=== PATIENT | female | born 1980 | race Caucasian/White ===

== ENCOUNTER 2016-08-03 17:45 | Emergency (ER) | payer SELFPAY ==
[~2016-08-03] VITALS: Ht 172.7 cm; Wt 65.8 kg
[2016-08-03 18:08] VITALS: BP 126/71
== END 2016-08-03 18:25 | disposition home or self-care (01) ==
LOC: ER 17:50
DX: J06.9 Acute upper respiratory infection, unspecified (principal); R05 Cough; F17.200 Nicotine dependence, unspecified, uncomplicated
CPT/HCPCS: 99281; A4606; Z7610; Z7502

== ENCOUNTER 2017-05-02 15:57 | Emergency (ER) | payer MEDICAID ==
[~2017-05-02] VITALS: Ht 167.6 cm; Wt 59.0 kg
[2017-05-02 16:12] VITALS: BP 124/74
== END 2017-05-02 16:50 | disposition home or self-care (01) ==
LOC: ER 15:59
DX: L50.9 Urticaria, unspecified (principal); F17.200 Nicotine dependence, unspecified, uncomplicated; Z98.82 Breast implant status
CPT/HCPCS: 99281; A4606; Z7610; Z7502

== ENCOUNTER 2018-04-07 21:16 | Emergency (ER) | payer MEDICAID ==
[~2018-04-07] VITALS: Ht 170.2 cm; Wt 59.4 kg
[2018-04-07 21:30] VITALS: BP 102/71
== END 2018-04-07 22:37 | disposition home or self-care (01) ==
LOC: ER 21:18
DX: J06.9 Acute upper respiratory infection, unspecified (principal); F17.200 Nicotine dependence, unspecified, uncomplicated; Z41.1 Encounter for cosmetic surgery; Z98.890 Other specified postprocedural states
CPT/HCPCS: 71045; 99283; A4606; Z7610

== ENCOUNTER 2018-07-16 00:47 | Emergency (ER) | END 2018-07-16 02:48 | disposition home or self-care (01) | DX: S02.2XXA Fracture of nasal bones, initial encounter for closed fracture (principal); S05.12XA Contusion of eyeball and orbital tissues, left eye, initial encounter; F17.200 Nicotine dependence, unspecified, uncomplicated; R42 Dizziness and giddiness; Z98.890 Other specified postprocedural states; Z98.82 Breast implant status; Y04.8XXA Assault by other bodily force, initial encounter; Y93.89 Activity, other specified; Y92.89 Other specified places as the place of occurrence of the external cause; Y99.8 Other external cause status ==

== ENCOUNTER 2020-02-29 22:30 | Emergency (ER) | payer MEDICAID ==
[~2020-02-29] VITALS: Ht 170.2 cm; Wt 59.0 kg
[2020-02-29 23:01] VITALS: BP 106/72
--- NOTE | 2020-02-29 23:18 | NUR ---
Discharged with Prescription antibiotics (augmentin).
--- NOTE | 2020-02-29 23:18 | NUR ---
Patient discharged to home in stable condition. Written and verbal after care instructions given. Patient verbalizes understanding of instruction.
== END 2020-02-29 23:20 | disposition home or self-care (01) ==
LOC: ER 22:30
DX: K04.7 Periapical abscess without sinus (principal); F17.210 Nicotine dependence, cigarettes, uncomplicated; Z98.890 Other specified postprocedural states; Z41.1 Encounter for cosmetic surgery

== ENCOUNTER 2020-03-25 06:49 | Emergency (ER) | payer MEDICAID ==
[~2020-03-25] VITALS: Ht 170.2 cm; Wt 61.2 kg
--- NOTE | 2020-03-25 07:01 | NUR ---
URINE SAMPLE COLLECTED AND SENT TO LAB.
--- NOTE | 2020-03-25 07:03 | NUR ---
RM DUARTE AT BEDSIDE TO [facility].
--- NOTE | 2020-03-25 07:03 | NUR ---
PT AAOX4, AMBULATORY WITH STEADY GAIT. BIBSELF C/O DIARRHEA X3 DAYS + STATE SHE WANTS A PRES FOR HEMORRHOIDS. AT BEDSIDE FOR EVAL. AWAITING ORDERS.
[2020-03-25 07:20] VITALS: BP 108/70
--- NOTE | 2020-03-25 07:20 | NUR ---
Patient discharged to home in stable condition. Written and verbal after care instructions given. Patient verbalizes understanding of instruction.
== END 2020-03-25 07:20 | disposition home or self-care (01) ==
LOC: ER 06:51
DX: R19.7 Diarrhea, unspecified (principal); K64.9 Unspecified hemorrhoids; F17.210 Nicotine dependence, cigarettes, uncomplicated; Z98.890 Other specified postprocedural states

== ENCOUNTER 2021-01-20 00:42 | Emergency (ER) | payer MEDICAID ==
[~2021-01-20] VITALS: Ht 170.2 cm; Wt 61.2 kg
--- NOTE | 2021-01-20 00:42 | NUR ---
NAUSEA/VOMITING X4HRS, C/O STOMACH PAIN, FEELS SHE ATE SOMETHING BAD FOR DINNER, PT AAOX4, DENIES ANY SOB/CP VSS, PENDING ER PROVIDER MANUEL
[2021-01-20] MEDS ORDERED: ONDANSETRON HCL/PF 4 MG/2 ML VIAL ONE (01:16)
[2021-01-20 01:29] LABS: BASOPHILS # (AUTO) 0.1 K/uL (0.0-0.2); EOSINOPHILS % (AUTO) 2.3 % (0.0-6.0); HEMATOCRIT 39 % (33-45); HEMOGLOBIN 12.9 g/dL (11.5-14.8); LYMPHOCYTES # (AUTO) 0.8 K/uL (0.8-4.8); LYMPHOCYTES % (AUTO) 12.2 % (20.0-44.0); MEAN CORPUSCULAR HGB CONC 33 g/dl (31.0-36.0); MEAN CORPUSCULAR VOLUME 91 fL (82-100); MONOCYTES # (AUTO) 0.3 K/uL (0.1-1.30); MONOCYTES % (AUTO) 4.9 % (2.0-12.0); NEUTROPHILS % (AUTO) 79.6 % (43.0-81.0); PLATELET COUNT (AUTO) 220 K/uL (150-450); WHITE BLOOD COUNT (AUTO) 6.3 K/uL (4.3-11.0)
[2021-01-20] MEDS ORDERED: IV NS 0.9% 1,000 ML BAG IV ONE (01:30)
[2021-01-20] MEDS ORDERED: ONDANSETRON HCL/PF 4 MG/2 ML VIAL IVP ONE (01:30)
[2021-01-20 01:48] LABS: CALCIUM, SERUM 8.6 mg/dL (8.5-10.1); CREATININE 0.7 mg/dL (0.6-1.3); POTASSIUM 3.7 mmol/L (3.5-5.1)
[2021-01-20 01:53] LABS: ALBUMIN 3.7 g/dL (3.4-5.0); BILIRUBIN,DIRECT 0.1 mg/dL (0.0-0.2); BILIRUBIN,TOTAL 0.4 mg/dL (0.2-1.0); TOTAL PROTEIN, SERUM 7.4 g/dL (6.4-8.2)
[2021-01-20] MEDS ORDERED: ONDA4TAB5 PO (02:11)
--- NOTE | 2021-01-20 02:23 | NUR ---
Patient discharged to home in stable condition. Written and verbal after care instructions given. Patient verbalizes understanding of instruction. IV removed. Catheter intact and site benign. Pressure and 4x4 applied to site. No bleeding noted.
[2021-01-20 02:32] VITALS: BP 128/76
== END 2021-01-20 02:33 | disposition home or self-care (01) ==
LOC: ER 00:46
DX: K52.9 Noninfective gastroenteritis and colitis, unspecified (principal); F17.210 Nicotine dependence, cigarettes, uncomplicated; Z98.890 Other specified postprocedural states
CPT/HCPCS: 36415; 80048; 80076; 83690; 85025; 96361; 96374; 99283; J2405; J7030

== ENCOUNTER 2021-06-16 22:46 | Emergency (ER) | payer MEDICAID ==
[~2021-06-16 22:46] MED LIST: ONDA4TAB5 PO
--- NOTE | 2021-06-16 23:00 | NUR ---
CALLED FOR TRIAGE NOT IN WAITING ROOM
--- NOTE | 2021-06-17 | NUR ---
CALLED FOR TRIAGE NOT IN WAITING ROOM
--- NOTE | 2021-06-17 01:48 | NUR ---
CALLED FOR TRIAGE NOT IN WAITING ROOM
--- NOTE | 2021-06-17 01:50 | NUR ---
PATIENT LEFT WITHOUT BEING SEEN
== END 2021-06-17 01:50 | disposition left against medical advice (07) ==
LOC: ER 22:48
DX: Z53.21 Procedure and treatment not carried out due to patient leaving prior to being seen by health care provider (principal)

== ENCOUNTER 2023-03-23 19:40 | Emergency (ER) | payer MEDICAID ==
[~2023-03-23] VITALS: Ht 170.2 cm; Wt 63.5 kg
[2023-03-23 20:52] VITALS: BP 114/64; TEMP 98.6; O2SAT 98
[2023-03-23] MEDS ORDERED: PROM118S5 PO (22:51)
[2023-03-23] MEDS ORDERED: IBUP-1955 PO (22:51)
== END 2023-03-23 22:58 | disposition home or self-care (01) ==
LOC: ER 19:42
DX: U07.1 COVID-19 (principal); F17.200 Nicotine dependence, unspecified, uncomplicated; Z98.890 Other specified postprocedural states; Z79.899 Other long term (current) drug therapy
CPT/HCPCS: 99283; 87426; 87804 ×2; C9803

== ENCOUNTER 2024-05-09 02:20 | Emergency (ER) | payer MEDICAID ==
[~2024-05-09] VITALS: Ht 170.2 cm; Wt 63.5 kg
[~2024-05-09 02:20] MED LIST changes: +IBUP-1955 PO; +PROM118S5 PO
[2024-05-09 02:59] VITALS: BP 122/74; TEMP 98.4; O2SAT 98
[2024-05-09] MEDS ORDERED: AMOX-430 PO (03:39)
== END 2024-05-09 03:43 | disposition home or self-care (01) ==
LOC: ER 02:24
DX: K01.1 Impacted teeth (principal); F17.290 Nicotine dependence, other tobacco product, uncomplicated; Z98.890 Other specified postprocedural states

== ENCOUNTER 2024-07-17 17:20 | Emergency (ER) | payer MEDICAID, OTHER ==
[~2024-07-17] VITALS: Ht 170.2 cm; Wt 63.5 kg
[~2024-07-17 17:20] MED LIST changes: +AMOX-430 PO
[2024-07-17] MEDS ORDERED: ONDANSETRON HCL/PF 4 MG/2 ML VIAL ONE (21:15)
[2024-07-17 21:29] LABS: BASOPHILS # (AUTO) 0.1 K/uL (0.0-0.2); BASOPHILS % (AUTO) 0.9 % (0.0-2.0); EOSINOPHILS % (AUTO) 0.4 % (0.0-6.0); HEMATOCRIT 38 % (33-45); HEMOGLOBIN 12.9 g/dL (11.5-14.8); LYMPHOCYTES # (AUTO) 1.2 K/uL (0.8-4.8); LYMPHOCYTES % (AUTO) 15.7 % (20.0-44.0); MEAN CORPUSCULAR HEMOGLOBIN 29 PG (26.0-33.0); MEAN CORPUSCULAR HGB CONC 34 g/dl (31.0-36.0); MEAN CORPUSCULAR VOLUME 85 fL (82-100); MONOCYTES # (AUTO) 0.5 K/uL (0.1-1.30); NEUTROPHILS # (AUTO) 5.8 K/uL (1.8-8.9); PLATELET COUNT (AUTO) 258 K/uL (150-450); RED BLOOD CELL COUNT(AUTO) 4.53 MIL/uL (4.0-5.2); RED CELL DISTRIBUTION WIDTH 14.2 % (11.5-15.0); WHITE BLOOD COUNT (AUTO) 7.6 K/uL (4.3-11.0)
[2024-07-17] MEDS: ONDANSETRON HCL/PF - ER 4 MG/2 ML VIAL IV ONE (21:29)
[2024-07-17] MEDS: IV NS 0.9% 1,000 ML IV ONE (21:29)
[2024-07-17 21:36] LABS: CALCIUM, SERUM 9.1 mg/dL (8.5-10.1); CREATININE 0.8 mg/dL (0.6-1.3)
[2024-07-17 21:41] LABS: APPEARANCE,URINE CLEAR (CLEAR); BILIRUBIN,URINE NEGATIVE (NEGATIVE); BLOOD, URINE 2+ Ery/uL (NEGATIVE); COLOR,URINE YELLOW (YELLOW); KETONES,URINE 1+ mg/dL (NEGATIVE); LEUKOCYTE ESTERASE ,URINE NEGATIVE (NEGATIVE); NITRITE, URINE NEGATIVE (NEGATIVE); PROTEIN,URINE NEGATIVE (NEGATIVE); UGLUCOSE NEGATIVE (NEGATIVE); UROBILINOGEN,URINE 0.2 EU/dL (0.2)
[2024-07-17 21:44] LABS: ALBUMIN 3.8 g/dL (3.4-5.0); BILIRUBIN,TOTAL 0.9 mg/dL (0.2-1.0)
[2024-07-17 21:45] LABS: PREGNANCY TEST URINE QUAL NEGATIVE (NEGATIVE)
[2024-07-17 21:47] LABS: ADD URINE CULTURE NO; BACTERIA,URINE 1+ /HPF (None Seen); MUCUS,URINE Many /LPF (None Seen); RBC,URINE 21-50 /HPF (0-2); SQUAMOUS EPITHELIAL CELL,UR 21-50 /HPF (None Seen); WBC,URINE 0-2 /HPF (0-3)
[2024-07-17 21:50] LABS: AMPHETAMINE, URINE NEGATIVE (NEGATIVE); BARBITURATE, URINE NEGATIVE (NEGATIVE); BENZODIAZEPINE, URINE NEGATIVE (NEGATIVE); CANNABINOID, URINE NEGATIVE (NEGATIVE); COCCAINE, URINE NEGATIVE (NEGATIVE); OPIATE, URINE NEGATIVE (NEGATIVE); PHENCYCLIDINE SCREEN,URINE NEGATIVE (NEGATIVE)
[2024-07-17] MEDS ORDERED: ONDA4TAB5 PO (22:37)
[2024-07-17 22:52] VITALS: BP 129/69; TEMP 98; O2SAT 100
== END 2024-07-17 23:12 | disposition home or self-care (01) ==
LOC: ER 17:46
DX: K52.9 Noninfective gastroenteritis and colitis, unspecified (principal); F17.290 Nicotine dependence, other tobacco product, uncomplicated; R09.02 Hypoxemia; Z98.890 Other specified postprocedural states
CPT/HCPCS: 99285; 74176; 96374; 96361; 85025; 83690; 84703; 36415; 80053; 80307; 81001; J2405; J7030

== ENCOUNTER 2025-05-24 19:01 | Emergency (ER) | payer MEDICAID ==
[~2025-05-24] VITALS: Ht 172.7 cm; Wt 65.8 kg
[2025-05-24] MEDS ORDERED: [UNRECOGNIZED DRUG - CODE] PO (20:04)
[2025-05-24 20:11] VITALS: BP 124/79; TEMP 98.5; O2SAT 98
== END 2025-05-24 20:12 | disposition home or self-care (01) ==
LOC: ER 19:11
DX: R05.9 Cough, unspecified (principal); F17.290 Nicotine dependence, other tobacco product, uncomplicated; Z98.890 Other specified postprocedural states